=== PATIENT | female | born 1995 | race Caucasian/White ===

== ENCOUNTER 2016-05-20 14:38 | Emergency (ER) | payer OTHER ==
[~2016-05-20] VITALS: Ht 160 cm; Wt 52.3 kg
[~2016-05-20 14:38] MED LIST: NORG1TAB79 PO
[2016-05-20 14:44] VITALS: BP 123/78; PULSE 113; RESP 12; O2SAT 96
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
[2016-05-20] MEDS ORDERED: NAPR500T PO (17:02)
[2016-05-20 17:34] VITALS: BP 139/87; PULSE 116; RESP 20; O2SAT 98
[2016-05-20 17:35] VITALS: BP 139/87; PULSE 116; RESP 20; O2SAT 98
== END 2016-05-20 17:36 | disposition home or self-care (01) ==
LOC: SED 14:38
DX: S00.81XA Abrasion of other part of head, initial encounter (principal); S00.12XA Contusion of left eyelid and periocular area, initial encounter; S09.92XA Unspecified injury of nose, initial encounter; T74.11XA Adult physical abuse, confirmed, initial encounter; Y04.8XXA Assault by other bodily force, initial encounter; Y07.03 Male partner, perpetrator of maltreatment and neglect; Y92.009 Unspecified place in unspecified non-institutional (private) residence as the place of occurrence of the external cause; Y93.89 Activity, other specified; Y99.8 Other external cause status